=== PATIENT | female | born 1960 | race Caucasian/White ===

== ENCOUNTER 2016-07-21 14:33 | Outpatient (CLI) | payer OTHER ==
--- NOTE | 2016-07-22 15:49 | Mammography Report ---
DIGITAL SCREENING MAMMOGRAM: 07/21/2016 CLINICAL INDICATION: A 55-year-old with family history of breast cancer, history of benign biopsy, fo r screening. COMPARISON: 11/2011, 05/2009, 02/2006. TECHNIQUE: Routine CC and MLO projections were obtained of the breasts. FINDINGS: The breasts again demonstrate heterogeneously dense fibroglandular parenchyma bilaterally. Asymmetric parenchyma in the left upper inner posterior breast is stable. Coarse and punctate, typic ally benign calcifications are present. No suspicious masses, clustered microcalcifications, or regio ns of architectural distortion are identified. IMPRESSION: BENIGN FINDINGS. RECOMMENDATION: ROUTINE ANNUAL SCREENING UNLESS OTHERWISE CLINICALLY INDICATED. BIRADS CATEGORY 2-BENIGN FINDINGS. STANDARD QUALIFYING STATEMENTS 1. This examination was reviewed with the aid of Computer-Aided Detection (CAD). 2. A negative or benign imaging report should not delay biopsy if clinically suspicious findings are present. Consider surgical consultation if warranted. More than 5% of cancers are not identified by i maging. 3. Dense breasts may obscure an underlying neoplasm. JOB #: [id number] EXT JOB #:[id number]
== END 2016-07-21 14:34 | disposition home or self-care (01) ==
LOC: DI.N 14:33
PROVIDERS: ATTEND Family Medicine
DX: Z12.31 Encounter for screening mammogram for malignant neoplasm of breast (principal); Z80.3 Family history of malignant neoplasm of breast
CPT/HCPCS: 77067

== ENCOUNTER → 2016-08-08 | Outpatient (CLI) | payer OTHER | LOC: LAB.R 08:00 → MERGE 18:42 | PROVIDERS: ATTEND Family Medicine | DX: R30.0 Dysuria (principal) | CPT/HCPCS: 87086 ==

== ENCOUNTER 2017-04-10 18:26 | Emergency (ER) | payer OTHER ==
[2017-04-10 18:33] VITALS: BP 129/95
[2017-04-10 19:30] LABS: BASOPHILS % (AUTO) 0.4 %; EOSINOPHILS % (AUTO) 0.4 %; HGB - HEMOGLOBIN 12.9 g/dL (12.0-16.0); LYMPHOCYTES # (AUTO) 0.9 10^3/uL (1.5-3.5); LYMPHOCYTES % (AUTO) 19.2 %; MEAN CORPUSCULAR HEMOGLOBIN 30.3 pg (27.0-31.0); MEAN CORPUSCULAR HGB CONC 33.1 g/dL (32.0-36.0); MEAN CORPUSCULAR VOLUME 91.5 fL (81.0-99.0); MEAN PLATELET VOLUME 7.3 fL (7.9-10.8); MONOCYTES # (AUTO) 0.7 10^3/uL (0.0-1.0); MONOCYTES % (AUTO) 16.5 %; NEUTROPHILS # (AUTO) 2.8 10^3/uL (1.5-6.6); NEUTROPHILS % (AUTO) 63.5 %; PLT - PLATELET COUNT 224 10^3/uL (130-450); RED BLOOD COUNT 4.27 10^6/uL (4.20-5.40); WHITE BLOOD COUNT 4.5 x10^3/uL (4.8-10.8)
[2017-04-10 19:32] LABS: ALBUMIN 4.5 g/dL (3.2-5.5); ALBUMIN/GLOBULIN RATIO 1.4 (1.0-2.2); BILIRUBIN,TOTAL 0.4 mg/dL (0.2-1.0); CALCIUM 9.4 mg/dL (8.5-10.3); TOTAL PROTEIN 7.8 g/dL (6.7-8.2)
[2017-04-10] MEDS ORDERED: SALINE ENEMA 133 ML BOTTLE RC STA (20:40)
--- NOTE | 2017-04-10 21:43 | ED Physician Documentation ---
PD HPI ABD PAIN - Stated complaint Stated Complaint: FEMALE - Chief complaint Chief Complaint: Abd Pain - History obtained from History obtained from: Patient - History of Present Illness Timing - onset: Today Timing - details: Gradual onset, Still present Quality: Cramping, Aching, Fullness/distended Location: All over / everywhere Associated symptoms: Constipation Similar symptoms before: Work up / diagnostics Recently seen: Not recently seen - Additional information Additional information: Patient is a 56 year old female with a history of constipation who is presenting to the emergency department for constipation. Patient states that her symptoms started today. She states that she put her finger in her rectum and could feel hard stool but she pushed it up further. patient states that she took mag citrate earlier today. Patient states that she normally has a bowel movement every day to every 3 days and has a pretty strict diet but patient ate a lot of different things yesterday at a [employer] party. Review of Systems Constitutional: denies: Fever, Chills Eyes: reports: Reviewed and negative Ears: reports: Reviewed and negative Nose: reports: Reviewed and negative Throat: reports: Reviewed and negative Cardiac: denies: Chest pain / pressure, Palpitations Respiratory: denies: Dyspnea, Cough, Wheezing GI: reports: Abdominal Pain, Nausea, Constipation. 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 - Present Medications Home Medications: Ambulatory Orders Medication Instructions Recorded Confirmed Dicyclomine [Bentyl] 10 mg PO QID #20 capsule 04/10/17 Docusate Sodium 250Mg Capsule 250 mg PO DAILY #20 capsule 04/10/17 [Colace 250Mg Capsule] Spironolactone [Aldactone] 150 mg PO DAILY PM 04/10/17 04/10/17 - Allergies Allergies/Adverse Reactions: Allergies Allergy/AdvReac Type Severity Reaction Status Date / Time Sulfa (Sulfonamide Allergy Severe Hives Verified 04/10/17 18:33 Antibiotics) metoprolol Allergy Intermediate Edema Verified 04/10/17 18:34 lisinopril AdvReac Mild Unknown Verified 04/10/17 18:34 - Social History Does the pt smoke?: No Smoking Status: Never smoker Does the pt drink ETOH?: No Does the pt have substance abuse?: No - Immunizations Immunizations: TDAP >10years/unknown - POLST Patient has POLST: No PD ED PE NORMAL - General General: Alert and oriented X 3 - HEENT HEENT: Atraumatic, PERRL - Neck Neck: Supple, no meningeal sign - Cardiac Cardiac: RRR, No murmur - Respiratory Respiratory: No respiratory distress - Derm Derm: Normal color, Warm and dry, No rash - Extremities Extremities: No deformity, No edema - Neuro Neuro: Alert and oriented X 3, No motor deficit, No sensory deficit, Normal speech Eye Opening: Spontaneous Motor: Obeys Commands Verbal: Oriented GCS Score: 15 PD ED PE EXPANDED - HEENT HEENT: Dry mucous membranes - Abdomen Abdomen: Decreased BS, Tender to palpation, Generalized/diffuse. No: Rebound, Guarding Results - Vitals Vitals: Vital Signs - 24 hr 04/10/17 18:29 Temperature 36.5 C Heart Rate 79 Respiratory 20 Rate Blood Pressure 129/95 H O2 Saturation 100 Oxygen O2 Source Room air - Labs Labs: Laboratory Tests 04/10/17 04/10/17 19:09 19:09 WBC 4.5 L RBC 4.27 Hgb 12.9 Hct 39.1 MCV 91.5 MCH 30.3 MCHC 33.1 RDW 14.0 Plt Count 224 MPV 7.3 L Neut # 2.8 Lymph # 0.9 L [place] # 0.7 Eos # 0.0 Baso # 0.0 Absolute Nucleated RBC 0.00 Nucleated RBC % 0.0 Sodium 134 L Potassium 3.8 Chloride 100 L Carbon Dioxide 24 Anion Gap 10.0 BUN 19 Creatinine 1.0 Estimated GFR (MDRD) 58 L Glucose 83 Calcium 9.4 Total Bilirubin 0.4 AST 22 ALT 19 Alkaline Phosphatase 60 Total Protein 7.8 Albumin 4.5 Globulin 3.3 Albumin/Globulin Ratio 1.4 Lipase 38 - Rads (name of study) abd x-ray Radiology: Final report received (large stool volume in colon) PD MEDICAL DECISION MAKING - ED course Complexity details: reviewed old records, reviewed results, re-evaluated patient , considered differential, d/w patient ED course: Patient was seen and examined at bedside. an enema was tried with little relief. Patient was sent for imaging. When patient returned the results were were reviewed and showed no signs of obstruction. Patient was given detailed discharge and follow up instructions and was stable for discharge with outpatient follow up. Departure - Departure Disposition: 01 Home, Self Care Clinical Impression: Constipation Condition: Good Instructions: ED Constipation Follow-Up: Jim Parra DO [Primary Care Provider] - As Needed Prescriptions: Dicyclomine [Bentyl] 10 mg PO QID #20 capsule Docusate Sodium 250Mg Capsule [Colace 250Mg Capsule] 250 mg PO DAILY #20 capsule Comments: Your diagnostics today revealed constipation which can cause abdominal pain and spasm. You should be careful with your diet as it can exacerbate your symptoms. You can take tylenol and bentyl as needed for pain. You should follow up with your doctor for further evaluation and care. You may return to the emergency department as needed for new, worsening or uncontrollable symptoms.
--- NOTE | 2017-04-10 22:21 | XRAY Preliminary Report ---
Exam: XR ABDOMEN 2 VIEW X-RAY IMPRESSION: Moderate amount of stool in the colon. [facility] SITE ID: [id number]
--- NOTE | 2017-04-10 22:28 | XRAY Report ---
EXAM: ABDOMEN RADIOGRAPHY EXAM DATE: 04/10/2017 10:13 PM. CLINICAL HISTORY: Abdominal pain, constipation. COMPARISON: None. TECHNIQUE: 2 views. FINDINGS: Lung Bases: Unremarkable. Bowel Gas Pattern: Within normal limits. No dilated loops or abnormal fluid levels. Moderate amount o f stool in the colon. Free Air: None. Other: None. IMPRESSION: Moderate amount of stool in the colon. [facility] Referring Provider Line: [phone] SITE ID: [id number]
== END 2017-04-10 23:00 | disposition home or self-care (01) ==
LOC: ED 18:26
DX: K59.00 Constipation, unspecified (principal); I10 Essential (primary) hypertension
CPT/HCPCS: 36415; 74019; 80053; 83690; 85025; 99282; 99284; A9270

== ENCOUNTER 2018-04-12 11:50 | Outpatient (CLI) | payer MEDICAID | END 2018-04-12 11:51 | disposition home or self-care (01) | LOC: DI.N 11:50 | DX: Z53.9 Procedure and treatment not carried out, unspecified reason (principal) ==

== ENCOUNTER 2018-04-17 10:27 | Outpatient (CLI) | payer MEDICAID ==
--- NOTE | 2018-04-17 15:29 | Mammography Report ---
Reason: LEFT BREAST PAIN Procedure Date: 04/17/2018 Accession Number: [id number] / [id number] Procedure: XIN - Diagnostic Dig Bilat CPT Code: FULL RESULT: EXAM: Diagnostic Dig Bilat, Breast Unilateral Ultrasound L eft Limited DATE: 04/17/2018 11:46 AM CLINICAL HISTORY: Focal left breast pain. Family history of breast cancer. Personal history of breast surgery including implants which have been removed. TECHNIQUE: Bilateral digital CC and MLO projections including tomography. Real-time scanning by the mine safety engineer of the area of focal left breast pain with saved static images reviewed. COMPARISON: 07/21/2016 BILATERAL MAMMOGRAPHY: FINDINGS: The breast tissue is heterogeneously dense. Asymmetric increased density in the left upper inner quadrant is unchanged. Scattered benign-appearing calcifications are similar to previous. One nodule is identified in each breast. On the right the 1 cm nodule is in the 8:00 position approximately 7 cm from the nipple, tamy MLO 17, CC 14. On the left the 8 mm nodule is in the 12:30 position approximately 7 to 8 cm from the nipple, tamy MLO 40, CC 40. LEFT BREAST ULTRASOUND: TECHNIQUE: Real-time scanning by the mine safety engineer with saved static images reviewed. FINDINGS: 1. Corresponding to the area of clinical pain 3:00 position left breast 8 cm from the nipple there is a 4 x 5 x 4 mm area of posterior shadowing which corresponds with a dense 5-6 mm calcification seen on mammography. 2. Corresponding to the mammographic nodular density 12:00 position 4 cm from the nipple is an ovoid hypoechoic avascular well-circumscribed 6 x 3 x 6 mm solid nodule, possibly a fibroadenoma. The 1 cm nodule 8:00 position right breast was not evaluated by ultrasound today because the appropriate order could not be obtained from the referring clinicians office in a timely fashion. IMPRESSION: 1. Probably benign finding left breast. Suggest follow-up left breast ultrasound in 6 months. BI-RADS 3 2. Incomplete evaluation right breast. Needs additional evaluation by right breast ultrasound. BI-RADS 0 RECOMMENDATION: Follow-up left breast ultrasound in 6 months. Needs additional evaluation right breast by ultrasound at this time. BIRADS CATEGORY 0: Needs additional evaluation STANDARD QUALIFYING STATEMENTS: 1. This examination was not reviewed with the aid of Computer-Aided Detection (CAD). 2. A negative or benign imaging report should not delay biopsy if clinically suspicious findings are present. Consider surgical consultation if warrented. More than 5% of cancers are not identified by imaging. 3. Dense breasts may obscure an underlying neoplasm. 4. This examination was reviewed with the aid of 3D imaging (tomography).
== END 2018-04-17 10:28 | disposition home or self-care (01) ==
LOC: DI 10:27
PROVIDERS: ATTEND Family Medicine
DX: N64.4 Mastodynia (principal); R92.8 Other abnormal and inconclusive findings on diagnostic imaging of breast
CPT/HCPCS: 76642; 77066

== ENCOUNTER 2018-04-27 13:12 | Outpatient (CLI) | payer MEDICAID ==
--- NOTE | 2018-04-27 15:21 | Ultrasound Report ---
Reason: MASTALGIA Procedure Date: 04/27/2018 Accession Number: [id number] / [id number] Procedure: US - Breast Unilateral Limited CPT Code: FULL RESULT: EXAM: Breast Unilateral Limited DATE: 04/27/2018 2:15 PM CLINICAL HISTORY: MASTALGIA COMPARISON: None. TECHNIQUE: Targeted ultrasound was performed of the right breast in the area of clinical concern at 8 o'clock and 7 cm distance from the nipple. Color Doppler was employed as appropriate. FINDINGS: No discrete mass or nodule is identified in the area of concern by ultrasound. A 0.7 cm focus of architectural distortion with mild nearby ductal ectasia is seen. This does not correspond to the mammographic finding in size or appearance. In the setting of history of breast implant the ultrasound only finding may represent a postsurgical change, probably benign. IMPRESSION: Probable benign findings RECOMMENDATION: Recommend diagnostic right breast mammogram in 6 months with ultrasound. BIRADS CATEGORY 3 [facility]
== END 2018-04-27 13:13 | disposition home or self-care (01) ==
LOC: DI 13:12
PROVIDERS: ATTEND Family Medicine
DX: N64.4 Mastodynia (principal)
CPT/HCPCS: 76642

== ENCOUNTER 2018-05-22 10:01 | Outpatient (CLI) | payer MEDICAID | END 2018-05-22 10:02 | disposition home or self-care (01) | LOC: SC 10:01 | PROVIDERS: ATTEND Internal Medicine Pulmonary Disease | DX: G47.10 Hypersomnia, unspecified (principal); R06.81 Apnea, not elsewhere classified; G47.8 Other sleep disorders; R41.89 Other symptoms and signs involving cognitive functions and awareness; R06.83 Snoring | CPT/HCPCS: 99203; 99212 ==

== ENCOUNTER → 2018-06-24 | Outpatient (CLI) | payer BC | LOC: SC 19:30 | PROVIDERS: ATTEND Internal Medicine Pulmonary Disease | DX: G47.33 Obstructive sleep apnea (adult) (pediatric) (principal) | CPT/HCPCS: 95806 ==

== ENCOUNTER 2018-07-12 14:18 | Outpatient (CLI) | payer SELFPAY | END 2018-07-12 14:19 | disposition home or self-care (01) | LOC: SC 14:18 | PROVIDERS: ATTEND Nurse Practitioner Family | DX: G47.33 Obstructive sleep apnea (adult) (pediatric) (principal) | CPT/HCPCS: 99212; 99214 ==

== ENCOUNTER 2018-09-24 16:16 | Outpatient (CLI) | payer SELFPAY | END 2018-09-24 16:17 | disposition home or self-care (01) | LOC: SC 16:16 | PROVIDERS: ATTEND Nurse Practitioner Family | DX: G47.33 Obstructive sleep apnea (adult) (pediatric) (principal) | CPT/HCPCS: 99212; 99214 ==

== ENCOUNTER 2019-03-15 11:10 | Outpatient (CLI) | payer MEDICAID ==
[2019-03-15 11:47] LABS: BASOPHILS % (AUTO) 0.2 %; EOSINOPHILS # (AUTO) 0.1 10^3/uL (0.0-0.7); EOSINOPHILS % (AUTO) 1.5 %; HGB - HEMOGLOBIN 13.8 g/dL (12.0-16.0); LYMPHOCYTES # (AUTO) 1.6 10^3/uL (1.5-3.5); LYMPHOCYTES % (AUTO) 29.1 %; MEAN CORPUSCULAR HEMOGLOBIN 30.5 pg (27.0-31.0); MEAN CORPUSCULAR HGB CONC 33.3 g/dL (32.0-36.0); MEAN CORPUSCULAR VOLUME 91.8 fL (81.0-99.0); MEAN PLATELET VOLUME 8.9 fL (7.9-10.8); MONOCYTES # (AUTO) 0.5 10^3/uL (0.0-1.0); MONOCYTES % (AUTO) 8.8 %; NEUTROPHILS # (AUTO) 3.3 10^3/uL (1.5-6.6); NEUTROPHILS % (AUTO) 60.2 %; PLT - PLATELET COUNT 280 10^3/uL (130-450); RED BLOOD COUNT 4.52 10^6/uL (4.20-5.40); RED CELL DISTRIBUTION WIDTH 13.8 % (12.0-15.0); WHITE BLOOD COUNT 5.4 x10^3/uL (4.8-10.8)
--- NOTE | 2019-03-15 11:54 | CT Report ---
Reason: HEADACHE, BLURRED VISION Procedure Date: 03/15/2019 Accession Number: [id number] / [id number] Procedure: CT - HEAD WO CPT Code: Final Report FULL RESULT: EXAM: CT HEAD EXAM DATE: 03/15/2019 11:26 AM. CLINICAL HISTORY: HEADACHE, BLURRED VISION. COMPARISON: None. TECHNIQUE: Multiaxial CT images were obtained from the foramen magnum to the vertex. Reformats: Sagittal and coronal. IV contrast: None. In accordance with CT protocol optimization, one or more of the following dose reduction techniques were utilized for this exam: automated exposure control, adjustment of mA and/or KV based on patient size, or use of iterative reconstructive technique. FINDINGS: Parenchyma: No intraparenchymal hemorrhage. No evidence of mass, midline shift, or CT findings of infarction. Foster-white differentiation is distinct. Extraaxial Spaces: Normal for age. No subdural or epidural collections identified. Ventricles: Normal in size and position. Sinuses and Orbits: Imaged paranasal sinuses, orbits, and mastoids show no significant abnormality. Bones: No evidence of fracture or calvarial defect. Other: None. IMPRESSION: Normal head CT. [facility] The call report notification system was initiated by Dr. Rae Maria at 11:52 AM on 03/15/2019.
[2019-03-15 12:04] LABS: ALBUMIN 4.6 g/dL (3.2-5.5); ALBUMIN/GLOBULIN RATIO 1.4 (1.0-2.2); ALKALINE PHOSPHATASE 67 IU/L (42-121); ALT ALANINE AMINOTRANSFERASE 16 IU/L (10-60); AST ASPARTATE AMINOTRANSFERASE 17 IU/L (10-42); BILIRUBIN,TOTAL 0.2 mg/dL (0.2-1.0); BUN - BLOOD UREA NITROGEN 15 mg/dL (6-20); CALCIUM 9.9 mg/dL (8.5-10.3); CARBON DIOXIDE - CO2 29 mmol/L (21-32); CHLORIDE 102 mmol/L (101-111); GFR - MDRD 57 (>89); GLUCOSE 96 mg/dL (70-100); SODIUM 139 mmol/L (135-145); TOTAL PROTEIN 7.9 g/dL (6.7-8.2)
[2019-03-15 12:53] LABS: CRP - C-REACTIVE PROTEIN < 1.0 mg/dL (0-1.0)
== END 2019-03-15 11:11 | disposition home or self-care (01) ==
LOC: DI 11:10
PROVIDERS: ATTEND Family Medicine
DX: R51 Headache (principal); H53.9 Unspecified visual disturbance; I10 Essential (primary) hypertension
CPT/HCPCS: 36415; 70450; 80053; 85025; 85651; 86140

== ENCOUNTER 2019-04-02 09:51 | Outpatient (CLI) | payer MEDICAID ==
[2019-04-02 12:25] LABS: CALCIUM 9.7 mg/dL (8.5-10.3); CREATININE 0.9 mg/dL (0.4-1.0)
== END 2019-04-02 23:59 | disposition home or self-care (01) ==
LOC: LAB.WCP 09:51
PROVIDERS: ATTEND Family Medicine
DX: I10 Essential (primary) hypertension (principal)
CPT/HCPCS: 36415; 80048

== ENCOUNTER 2019-04-16 11:00 | Outpatient (CLI) | payer MEDICAID ==
--- NOTE | 2019-04-16 12:33 | SLEEP CARE CONSULTATION ---
Information from patient questionnaire entered by Katty Fontana. I have reviewed and concur with the information entered by Katty Fontana. This document represents the service I personally performed and the decisions made by me, Fely Guthrie, RN, MSN, [employer]. History of Present Illness Previous diagnosis: Moderate, Obstructive Sleep Apnea-Hypopnea Syndrome AHI: 16.4 Reason for follow up: other (7 month) Equipment type: CPAP Mask style: Nasal pillows (bought online) Mask brand: Resmed Backup mask available: Yes Last cushion change: 3 weeks ago Prior sleep studies: Yes HPI additional information: Patient has been buying supplies online as no insurance until recently. CPAP Compliance Data - Data Reviewed with Patient Average duration of nightly device use: 7H 44M Compliance rate %: 75.6 Current pressure setting (cmH2O): 10-12 Humidity settin Heated hose settin Average residual AHI: 0.8 Average large leak: 0s Subjective Missed days of use due to: reports: other (stopped using until found a more comfortable mask online ) Patient concerns: reports: aerophagia (waking to burping a few times every night), mask discomfort (waking to discomfort a few times a night. ), air blowing in eyes (occasionally), mask leak noise (waking to mask leak noise a few times a night), dry mouth, nose, throat (rare ), other (ear bilateral pops, not sleeping through night, snoring, no heat/air too cold, no humidifier, not adjustable). denies: condensation in mask/hose, nasal congestion, epistaxis Observed to snore while using device: No Current pressure setting perceived as: too high On therapy, patient: reports: sleeping better (when first started but not recently), being more awake and alert during the day. denies: drowsiness while driving Initial [place] Sleepiness Scale score: 7 Current [place] Sleepiness Scale score: 11 Allergies and Home Medications Known drug allergies: Yes (sulfa, lisinopril, iodine, metoprolol, motrin, naproxen) Home medication list reviewed: Yes (added HCTZ, stopped bupropion ) Allergy and home medication list: Medication Name (generic/name brand) Strength & Dosage Hydrochlorthiazide daily unknown dose Losartan Potassium 100mg tab one daily Multi-vitamin Tab one daily Transderm-Scop 1mg/3days Patch Apply every 72 hours as needed for fishing Allergy List Sulfa -rash Lisinopril -cough Iodine facial swelling metoprolol face swelling Review of Systems Review of systems same as previous: Yes Physical Exam Blood Pressure: 94/60 Cuff size: regular Heart Rate: 78 O2 Saturation: 98 Height: 5 ft 6 in Weight: 187 lb 9.6 oz Weight change since last visit: gained 13 pounds Body Mass Index: 30.2 BMI Classification: Obesity Class 1 Impression and Plan 1. Obstructive Sleep Apnea-Hypopnea Syndrome, moderate , with good treatment compliance and good apnea control. On CPAP therapy, the patient has better sleep quality and is more rested overall. For comfort of air, I will reduce her autoCPAP 7-9cmH20. She is advised to contact me if the pressure change does not resolve the aerophagia or if continues to feel too high or too low. In addition, she was instructed how to use the ramp and this will be lengthened and should resolve the ear popping. Nasal congestion can contribute to the ear popping. Nasal congestion can be reduced with using the CPAP humidity as shown on sample device. The heated hose can be adjusted higher if condensation with higher humidity setting. The heated hose can also be increased to increase air warmth and comfort. Saline nasal spray sample was also given to use prior to CPAP to clear nasal secretions and wash off any nasal allergens to facilitate nasal breathing. In addition, a steamy shower before bed will often assist nasal drainage. Since she is having difficulty with mask discomfort and it is dislodging and waking her that she bought online, I will have a mask refitting done with new DME now that she has insurance. Hopefully the above measures will assist her to sleep better. Patient's apnea severity and rationale for treatment to reduce apnea, improve sleep quality and reduce cardiovascular and cerebrovascular events was reviewed. I also reviewed the benefit of consistent device use of CPAP for hypertension, gastric reflux, depression/anxiety. * * Change CPAP pressure to 7-9 cmH2O * Notify me if snoring with mask or feeling that the pressure is too much or too little * Attempt to lose weight * Call this office if any problems using CPAP * Return for follow up in 2 months if available per her schedule to check pressure efficacy. Time Spent with Patient (minutes): 35 I spent 100% of this visit face to face with the patient with greater than 50% of this was spent time counseling the patient and coordination of care.
[2019-04-16 12:34] VITALS: BP 94/60
== END 2019-04-16 11:01 | disposition home or self-care (01) ==
LOC: SC 11:00
PROVIDERS: ATTEND Nurse Practitioner Family
DX: G47.33 Obstructive sleep apnea (adult) (pediatric) (principal); E66.9 Obesity, unspecified; Z68.30 Body mass index [BMI] 30.0-30.9, adult
CPT/HCPCS: 99212; 99214